=== PATIENT | female | born 1955 | race Caucasian/White ===

== ENCOUNTER 2025-06-17 11:37 | Outpatient (CLI) | payer MEDICARE | END 2025-06-17 11:38 | disposition home or self-care (01) | LOC: BICCT 11:37 | PROVIDERS: ATTEND Family Medicine | DX: Z12.31 Encounter for screening mammogram for malignant neoplasm of breast (principal); Z85.42 Personal history of malignant neoplasm of other parts of uterus; F17.210 Nicotine dependence, cigarettes, uncomplicated | CPT/HCPCS: 71271; 77063; 77067 ==